=== PATIENT | male | born 1980 | race Caucasian/White ===

== ENCOUNTER 2021-08-12 20:53 | Emergency (ER) | payer SELFPAY ==
[2021-08-12] MEDS ORDERED: hydrALAZINE 20 MG/ML SDV IM STA (21:40)
== END 2021-08-12 22:45 ==
LOC: FB.ED 20:53
DX: R07.9 Chest pain, unspecified (principal); I10 Essential (primary) hypertension; E66.9 Obesity, unspecified; Z68.31 Body mass index [BMI] 31.0-31.9, adult; Z79.899 Other long term (current) drug therapy; Z72.0 Tobacco use
CPT/HCPCS: 36415; 80053; 84484; 85025; 93005; 96372; 99285; J0360